=== PATIENT | female | born 1975 | race Caucasian/White ===

== ENCOUNTER 2024-04-03 20:07 | Emergency (ER) | payer OTHER, SELFPAY ==
[2024-04-03] VITALS (7 sets, daily range): BP systolic 131–161; BP diastolic 88–117; PULSE 83–93; RESP 16–24; TEMP 36.9; O2SAT 95–99; BMI 32.5
--- NOTE | 2024-04-03 20:10 | ECG_ITS ---
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
--- NOTE | 2024-04-03 20:11 | XRR_ITS ---
PROCEDURE INFORMATION: Exam: XR Chest Exam date and time: 04/03/2024 8:20 PM Age: 48 years old Clinical indication: Pain; Shortness of breath; Chest pressure; Additional info: Chest pain TECHNIQUE: Imaging protocol: Radiologic exam of the chest. Views: 1 view. COMPARISON: No relevant prior studies available. FINDINGS: Lungs: No consolidation. Pleural spaces: No pleural effusion. No pneumothorax. Heart/Mediastinum: No cardiomegaly. Bones/joints: No acute findings. XR/XR chest 1V portable 30375 IMPRESSION: No acute chest findings.
[2024-04-03 21:12] LABS: Basophils # 0.1 10^3/uL (0.0-0.1); Basophils % 0.5 %; Eosinophils # 0.2 10^3/uL (0.0-0.8); Eosinophils % 1.6 %; Hematocrit 42.9 % (36-47); Lymphocytes # 2.4 10^3/uL (0.8-4.8); Lymphocytes % 25.8 %; Mean Corpuscular HGB Conc 33.1 g/dL (30-55); Mean Corpuscular Hemoglobin 28.8 pg (27-33); Mean Platelet Volume 10.6 fL (7.4-10.4); Monocytes # 0.5 10^3/uL (0.2-0.9); Monocytes % 5.3 %; Neutrophils # 6.05 10^3/uL (1.8-7.7); Neutrophils % 66.6 %; Nucleated Red Blood Cells % 0 %; Platelet Count 286 10^3/cmm (157-399); Red Blood Count 4.93 10^6/uL (3.85-5.65); Red Cell Distribution Width 12.4 % (12.1-15.1)
--- NOTE | 2024-04-03 21:21 | ED_ITS ---
HPI - Chest Pain 2 General: Chief Complaint: Chest Pain Stated Complaint: Chest Pain, Back Pain Going down Right arm Time Seen by Provider: 04/03/24 21:13 History of Present Illness: Patient presents to the ER with complaints of intermittent chest pain on the left side of her chest that often migrated and radiated to her back and down her right arm. Patient said this has been going off and on for about the last 2 days. Patient has never had a thing like this before. She denies any cardiac history. She also said last night she woke up covered in sweat 2 or 3 times. Patient denies any signs of overt sickness such as coughs colds known fever sick contacts etc. Patient also noted her blood pressure to be elevated today with multiple diastolic readings over 100. Patient does not endorse any chest pain at this time. Review of Systems 2 General: Reports: 10 or more systems reviewed and unremarkable except in HPI and below Physical Exam 2 Const: COMMON NORMALS: no acute distress, average body habitus, patient oriented x3, no limitations, healthy appearing, alert and well nourished HENMT: COMMON NORMALS: normocephalic, atraumatic, hearing grossly normal bilaterally, external ears normal, Normal external nose present, moist oral mucous membranes and oropharynx normal HEAD & SCALP: normocephalic and atraumatic NOSE: Normal external nose present EXTERNAL EAR: Yes external ears normal Neck/C-Spine: COMMON NORMALS: full ROM, no lymphadenopathy, supple, no meningeal signs and no JVD Chest: COMMONS NORMALS: normal inspection of the chest and normal palpation of entire chest wall Resp: COMMON NORMALS: normal respiratory effort, No retractions, No use of accessory muscles and clear to auscultation bilaterally AUSCULTATION: clear to auscultation bilaterally Cardio: COMMON NORMALS: no JVD, regular rate, regular rhythm, S1 normal heart sound present, S2 normal heart sound present, No gallops present (Cardio), No clicks present (Cardio), No murmurs present (Cardio) and No rub (Cardio) R ATE: regular rate RHYTHM: regular rhythm HEART SOUNDS: S1 normal heart sound present and S2 normal heart sound present GI: COMMON NORMALS: Normal to inspection, nondistended, normoactive bowel sounds present, Soft to palpation, non-tender, No hepatosplenomegaly present and no masses PALPATION: Yes Soft to palpation and Yes No hepatosplenomegaly present Neuro: COMMON NORMALS: patient oriented x3 SENSORIUM/ORIENTATION: Yes alert MENINGEAL SIGNS: Yes no meningeal signs Course 2 Vital Signs: Vital signs: Vital Signs Temperature 98.4 F 04/03/24 20:08 Pulse Rate 83 04/03/24 23:12 Respiratory Rate 24 H 04/03/24 23:12 Blood Pressure 144/98 04/03/24 23:12 Pulse Oximetry 96 04/03/24 23:12 Oxygen Delivery Me thod Room Air 04/03/24 20:08 MDM - Chest Pain Medical Decision Making Patient had a standard chest pain workup with serial EKGs, serial cardiac enzymes, chest x-ray, all which was essentially benign. Patient was chest pain- free during her stay here. Patient be discharged home. Medical Records I reviewed the patient's medical records. Lab Data I reviewed the patient's lab results. 04/03/24 20:56 04/03/24 20:56 Radiology Impressions Chest X-Ray 04/03/24 20:11 IMPRESSION: No acute chest findings. Laboratory Results WBC 9.10 10^3/uL (3.29-11.43) 04/03/24 20:56 RBC 4.93 10^6/uL (3.85-5.65) 04/03/24 20:56 Hgb 14.20 g/dL (11.27-16.99) 04/03/24 20:56 Hct 42.9 % (36-47) 04/03/24 20:56 MCV 87.0 fl (85-98) 04/03/24 20:56 MCH 28.8 pg (27-33) 04/03/24 20:56 MCHC 33.1 g/dL (30-55) 04/03/24 20:56 RDW 12.4 % (12.1-15.1) 04/03/24 20:56 Plt Count 286 10^3/cmm (157-399) 04/03/24 20:56 MPV 10.6 fL (7.4-10.4) H 04/03/24 20:56 Neut % (Auto) 66.6 % 04/03/24 20:56 Lymph % (Auto) 25.8 % 04/03/24 20:56 [place] % (Auto) 5.3 % 04/03/24 20:56 Eos % (Auto) 1.6 % 04/03/24 20:56 Baso % (Auto) 0.5 % 04/03/24 20:56 Neut # (Auto) 6.05 10^3/uL (1.8-7.7) 04/03/24 20:56 Lymph # (Auto) 2.4 10^3/uL (0.8-4.8) 04/03/24 20:56 [place] # (Auto) 0.5 10^3/uL (0.2-0.9) 04/03/24 20:56 Eos # (Auto) 0.2 10^3/uL (0.0-0.8) 04/03/24 20:56 Baso # (Auto) 0.1 10^3/uL (0.0-0.1) 04/03/24 20:56 Nucleated RBC % (auto) 0 % 04/03/24 20:56 Nucleated RBCs # 0.0 /100WBC 04/03/24 20:56 Sodium 138 mmol/L (136-145) 04/03/24 20:56 Potassium 4.1 mmol/L (3.5-5.1) 04/03/24 20:56 Chloride 99 mmol/L (98-107) 04/03/24 20:56 Carbon Dioxide 27 mmol/L (22-29) 04/03/24 20:56 Anion Gap 16.1 (5-19) 04/03/24 20:56 BUN 12 mg/dL (6-20) 04/03/24 20:56 Creatinine 0.8 mg/dL (0.5-0.9) 04/03/24 20:56 GFR Calculation 76.9 mL/min (90-130) L 04/03/24 20:56 Glucose 267 mg/dL (65-115) H 04/03/24 20:56 Calculated Osmolality 295 mOsm/kg (285-295) 04/03/24 20:56 Calcium 9.9 mg/dL (8.5-10.5) 04/03/24 20:56 Total Bilirubin 0.5 mg/dL (0.15-1.2) 04/03/24 20:56 AST 31 U/L (0-32) 04/03/24 20:56 ALT 71 U/L (0-33) H 04/03/24 20:56 Alkaline Phosphatase 97 U/L (35-105) 04/03/24 20:56 Troponin T Baseline < 6 ng/L (0-10) 04/03/24 20:56 Troponin T 120 Minute 6.00 ng/L (0-10) 04/03/24 22:46 Delta Troponin T 0.89753 ABS# (0-10) 04/03/24 22:46 Total Protein 7.1 g/dL (6.6-8.7) 04/03/24 20:56 Albumin 4.7 g/dL (3.5-5.2) 04/03/24 20:56 Globulin 2.4 g/dL (1.3-4.6) 04/03/24 20:56 All radiology interpretation(s) finalized by discharge Discharge Plan Discharge Patient Disposition: Home Clinical Impression: Chest pain Qualifiers: Chest pain type: unspecified Qualified Code(s): R07.9 - Chest pain, unspecified Condition: Stable Discharge Orders: Discharge ED (Routine); Ordered 04/03/24 Ordered By: Aj Tello Patient Instructions: Chest Pain (ED) Activity Restrictions/Additional Instructions: Your evaluation in the ER did not show any acute cardiac cause of your chest pain. Your chest pain is felt to be noncardiac in nature. Please follow-up with your family practice physician within the next 7 days for further evaluation and treatment. Activity restrictions/additional instructions: Thank you for choosing [facility] for your healthcare needs today. Please realize that you were seen in the emergency department and that we are providing you with an emergency medical screening exam and this may not be a complete and all exclusive of all testing and/or medical workup we may need to determine your element or severity of your illness. It is very important that you follow-up as instructed with your primary care provider or specialist for the additional evaluation and to discuss your medical treatment plan. You may return to the emergency department should you have concerns or if your condition changes or worsens in any way. Print Language: Hungarian Coding Level of Care Code ED Estate Planning Director for Nicole Mcfarlane
[2024-04-03 21:34] LABS: Alanine Aminotransferase 71 U/L (0-33); Albumin Level 4.7 g/dL (3.5-5.2); Alkaline Phosphatase 97 U/L (35-105); Anion Gap 16.1 (5-19); Aspartate Amino Transferase 31 U/L (0-32); Blood Urea Nitrogen 12 mg/dL (6-20); Calcium 9.9 mg/dL (8.5-10.5); Carbon Dioxide 27 mmol/L (22-29); Chloride 99 mmol/L (98-107); Creatinine Clr Calc Pharmacy 92.3529; Globulin 2.4 g/dL (1.3-4.6); Glomerular Filtration Rate 76.9 mL/min (90-130); Glucose 267 mg/dL (65-115); Osmolality Calculated 295 mOsm/kg (285-295); Potassium 4.1 mmol/L (3.5-5.1); Sodium 138 mmol/L (136-145); Total Bilirubin 0.5 mg/dL (0.15-1.2); Total Protein 7.1 g/dL (6.6-8.7); Troponin(5th) Baseline < 6 ng/L (0-10)
--- NOTE | 2024-04-03 22:46 | ECG_ITS ---
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
[2024-04-03 23:07] LABS: Troponin 5 2HR Delta 0.00001 ABS# (0-10)
== END 2024-04-03 23:52 | disposition home or self-care (01) ==
PROVIDERS: Emergency Provider Emergency Medicine
DX: R07.9 Chest pain, unspecified (principal)
CPT/HCPCS: 36415; 71045; 80053; 84484; 85025; 93005; 99285